=== PATIENT | male | born 2000 | race Caucasian/White ===

== ENCOUNTER 2018-02-17 00:45 | Emergency (ER) | payer OTHER ==
[2018-02-17] MEDS: SOD CHLORIDE 0.9% 1,000 ML IV (02:39)
[2018-02-17] MEDS: ACETAMINOPHEN 325 MG TAB PO (02:40)
[2018-02-17] MEDS: KETOROLAC 30 MG INJ IV (02:47)
[2018-02-17 03:04] LABS: ADD MAN DIFF? NO
[2018-02-17 03:06] LABS: BASOPHILS % 0.3 % (0.0-2.0); EOSINOPHILS # 0.2 10^3/ul (0.0-0.5); EOSINOPHILS % 1.8 % (0.0-7.0); HEMATOCRIT 39.2 % (42.0-52.0); HEMOGLOBIN 13.6 g/dl (14.0-18.0); LYMPHOCYTES # 1.5 10^3/ul (0.8-2.9); LYMPHOCYTES % 11.4 % (18.0-55.0); MEAN CORPUSCULAR HEMOGLOBIN 30.2 pg (29.0-33.0); MEAN CORPUSCULAR HGB CONC 34.7 g/dl (32.0-37.0); MEAN CORPUSCULAR VOLUME 87.1 fl (72.0-104.0); MONOCYTES % 7.7 % (0.0-13.0); NEUTROPHIL # 10.2 10^3/ul (1.6-7.5); NEUTROPHILS % 78.4 % (30.0-74.0); PLATELET COUNT 244 10^3/UL (140-415); RED CELL DISTRIBUTION WIDTH 11.9 % (11.5-14.5)
[2018-02-17 03:06] LABS: WHITE BLOOD COUNT 13.1 10^3/ul (4.8-10.8)
[2018-02-17 03:28] LABS: ALANINE AMINOTRANSFERASE 89 IU/L (13-69); ALBUMIN 4.2 g/dl (3.3-4.9); ALBUMIN/GLOBULIN RATIO 1.35; ALKALINE PHOSPHATASE 68 IU/L (42-121); ANION GAP 16 (8-16); ASPARTATE AMINO TRANSFERASE 34 IU/L (15-46); BILIRUBIN,INDIRECT 0.5 mg/dl (0-1.1); BILIRUBIN,TOTAL 0.5 mg/dl (0.2-1.3); BLOOD UREA NITROGEN 17 mg/dl (7-20); CALCIUM 9.3 mg/dl (8.4-10.2); CARBON DIOXIDE 27 mmol/L (21-31); CHLORIDE 105 mmol/L (97-110); CREATININE 0.74 mg/dl (0.61-1.24); GLUCOSE 92 mg/dl (70-220); POTASSIUM 4.3 mmol/L (3.5-5.1); SODIUM 144 mmol/L (135-144); TOTAL PROTEIN 7.3 g/dl (6.1-8.1)
[2018-02-17] MEDS: CLINDAMYCIN 600 MG/D5W (PMX) 50 ML IVPB (04:18)
== END 2018-02-17 05:35 | disposition home or self-care (01) ==
LOC: FTE 00:45
DX: L03.116 Cellulitis of left lower limb (principal); L03.115 Cellulitis of right lower limb; J45.909 Unspecified asthma, uncomplicated; F17.210 Nicotine dependence, cigarettes, uncomplicated
CPT/HCPCS: 36415; 80053; 85025; 93970; 96374; 96375; 99285-25

== ENCOUNTER 2019-01-31 18:02 | Emergency (ER) | payer SELFPAY ==
[2019-01-31] MEDS ORDERED: KETOROLAC 60 MG INJ IM (18:39)
[2019-01-31] MEDS: MELOXICAM 15 MG TAB PO (18:57)
== END 2019-01-31 19:45 | disposition home or self-care (01) ==
LOC: FTE 18:02
DX: S60.222A Contusion of left hand, initial encounter (principal); F17.210 Nicotine dependence, cigarettes, uncomplicated; J45.909 Unspecified asthma, uncomplicated; V49.59XA Passenger injured in collision with other motor vehicles in traffic accident, initial encounter
CPT/HCPCS: 29125; 73130-LT; 99283-25